=== PATIENT | female | born 1995 | race Caucasian/White ===

== ENCOUNTER 2021-05-13 01:23 | Emergency (ER) | payer OTHER ==
[~2021-05-13 01:23] MED LIST: AEROCHAMBER1 EA XX; IBUPROFEN600 MG PO; PREDNISONE 50 M50 MG PO; VENTOLIN HFA 66.7 GM INH; VISTARIL25 MG PO; ZYRTEC10 MG PO
[2021-05-13 02:54] LABS: HEMOGLOBIN 11.8 gm/dl (12.3-15.3); RED BLOOD COUNT 3.99 M/UL (4.00-5.10); WHITE BLOOD COUNT 8.4 K/UL (4.5-11.0)
[2021-05-13 03:18] LABS: BUN/CREATININE RATIO 11 (0-10)
== END 2021-05-13 04:25 | disposition home or self-care (01) ==
LOC: ER1 01:23
PROVIDERS: Emergency Medicine
DX: F41.1 Generalized anxiety disorder (principal); Z86.16 Personal history of COVID-19
CPT/HCPCS: 71045; 80053; 82550; 82553; 83874; 84484; 85025; 93005; 99285

== ENCOUNTER 2021-11-10 23:22 | Emergency (ER) | payer OTHER | END 2021-11-11 02:27 | disposition left against medical advice (07) | LOC: ER1 23:22 | DX: Z53.21 Procedure and treatment not carried out due to patient leaving prior to being seen by health care provider (principal) ==